=== PATIENT | male | born 1990 | race Caucasian/White ===

== ENCOUNTER 2023-02-01 22:14 | Inpatient (IN) | payer BC, OTHER, SELFPAY ==
[~2023-02-01 22:14] MED LIST: Iopamidol-370 76% 500 ML MDV (1 ML CHARGE) ONE
[2023-02-01 22:52] LABS: #Basophils 0.1 thou/uL (0.0-0.2); #Eosinphils 0.1 thou/uL (0.0-0.7); #Monocytes 1.6 thou/uL (0.11-0.59); #Neutrophils 12.2 thou/uL (1.40-6.50); %Basophils 0.6 % (0.0-1.0); %Eosinophils 0.6 % (0.0-10.0); %Lymphocytes 24.1 % (21.0-51.0); %Monocytes 8.3 % (0.0-10.0); %Neutrophils 65.2 % (42.0-75.0); Hematocrit 44.4 % (42.0-52.0); Hemoglobin 16.5 g/dL (14.0-18.0); Mean Corpuscular HGB CONC 37.2 g/dL (32.0-36.0); Mean Corpuscular Hemoglobin 32.8 pg (27.0-31.0); Mean Corpuscular Volume 88.3 fl (78.0-98.0); Mean Platelet Volume 11.2 fL (7.4-10.4); Platelet Count 344 10x3/uL (130-400); RBC Distribution Width 11.1 % (11.5-14.5); Red Blood Cell (RBC) Count 5.03 mill/uL (4.70-6.10); White Blood Cell (WBC) Count 18.8 10x3/uL (4.8-10.8)
[2023-02-01 22:58] LABS: INR-International Normal Ratio 1.1; PTT 24.3 sec (22.9-36.1); Prothrombin Time 14.7 sec (12.0-14.7)
[2023-02-01 23:03] LABS: ALT (SGPT) 1259 U/L (8-55); AST (SGOT) 1579 U/L (5-34); Alcohol 172.5 mg/dL (Less than 10); Alkaline Phosphatase 86 U/L (40-110); Anion Gap 21 mmol/L (10-20); BUN (Urea Nitrogen) 8 mg/dL (8.9-20.6); Bilirubin, Total 0.7 mg/dL (0.2-1.2); Calc. Creatinine Clearance 0 mL/min (70-130); Calcium 8.6 mg/dL (7.8-10.44); Carbon Dioxide 17 mmol/L (22-29); Chloride 103 mmol/L (98-107); Estimated GFR 86; Globulin 2.9 g/dL (2.4-3.5); Glucose 122 mg/dL (70-105); Lipase 135 U/L (8-78); Potassium 3.7 mmol/L (3.5-5.1); Protein, Total 6.9 g/dL (6.0-8.3); Sodium 137 mmol/L (136-145)
[2023-02-01] MEDS ORDERED: Ondansetron PF 4 MG/2 ML Vial ONE (23:25)
[2023-02-01] MEDS ORDERED: Tranexamic Acid 1,000 MG/10 ML VIAL ONE (23:25)
[2023-02-01] MEDS ORDERED: Boostrix 0.5 ML (Tdap) VIAL (>/=7 yrs of age) ONE (23:25)
[2023-02-01] MEDS ORDERED: Ondansetron PF 4 MG/2 ML Vial IVP PRN (23:45)
[2023-02-01] MEDS ORDERED: Acetaminophen 325 MG TAB PO PRN (23:45)
[2023-02-01] MEDS ORDERED: Ondansetron ODT 4 MG TAB SL PRN (23:45)
[2023-02-01] MEDS ORDERED: Ketorolac Tromethamine 30 MG/ML VIAL ONE (23:51)
[2023-02-02] MEDS ORDERED: Triple Antibiotic Oint 1 GM Packet ONE (00:27)
[2023-02-02] MEDS ORDERED: Dextrose 5% in Water 1,000 ML IV PRN (00:33)
[2023-02-02] MEDS ORDERED: Ondansetron ODT 4 MG TAB PO PRN (00:33)
[2023-02-02] MEDS ORDERED: Ondansetron PF 4 MG/2 ML Vial IVP PRN (00:33)
[2023-02-02] MEDS ORDERED: Dextrose 50% Abboject 50 ML SYRINGE SLOW IVP PRN (00:33)
[2023-02-02] MEDS ORDERED: Ipratropium/Albuterol 3 ML NEB NEB PRN (00:33)
[2023-02-02] MEDS ORDERED: Morphine 2 MG/ML VIAL SLOW IVP PRN (00:33)
[2023-02-02] MEDS ORDERED: Glucagon 1 MG/ML KIT IM PRN (00:33)
[2023-02-02] MEDS ORDERED: Sodium Chloride 0.9% 1,000 ML IV SCH ×2 (00:45→23:15)
[2023-02-02] MEDS ORDERED: Acetaminophen 500 MG TAB PO SCH (00:45)
[2023-02-02] MEDS ORDERED: traMADol HCl 50 MG TAB ONE (01:02)
[2023-02-02] MEDS: Ketorolac Tromethamine 30 MG/ML VIAL IVP SCH ×4 (02:16→18:44)
[2023-02-02] MEDS: traMADol HCl 50 MG TAB PO SCH ×4 (02:16→18:45)
[2023-02-02] MEDS: Morphine 4 MG/ML VIAL SLOW IVP PRN ×2 (02:23→20:38)
[2023-02-02] MEDS: Oxazepam 10 MG CAP PO SCH ×3 (06:18→20:34)
[2023-02-02 06:36] LABS: #Monocytes 2.4 thou/uL (0.11-0.59); #Neutrophils 15.2 thou/uL (1.40-6.50); %Basophils 0.1 % (0.0-1.0); %Lymphocytes 6.4 % (21.0-51.0); %Monocytes 12.7 % (0.0-10.0); %Neutrophils 80.4 % (42.0-75.0); Hematocrit 43.5 % (42.0-52.0); Hemoglobin 15.7 g/dL (14.0-18.0); Mean Corpuscular HGB CONC 36.1 g/dL (32.0-36.0); Mean Corpuscular Hemoglobin 32.2 pg (27.0-31.0); Mean Corpuscular Volume 89.3 fl (78.0-98.0); Mean Platelet Volume 11.3 fL (7.4-10.4); Platelet Count 341 10x3/uL (130-400); RBC Distribution Width 11.5 % (11.5-14.5); Red Blood Cell (RBC) Count 4.87 mill/uL (4.70-6.10)
[2023-02-02 06:56] LABS: Anion Gap 15 mmol/L (10-20); BUN (Urea Nitrogen) 9 mg/dL (8.9-20.6); Calc. Creatinine Clearance 172 mL/min (70-130); Calcium 8.9 mg/dL (7.8-10.44); Carbon Dioxide 20 mmol/L (22-29); Chloride 107 mmol/L (98-107); Estimated GFR 109; Glucose 175 mg/dL (70-105); Potassium 4.9 mmol/L (3.5-5.1); Sodium 137 mmol/L (136-145)
[2023-02-02] MEDS: Ipratropium/Albuterol 3 ML NEB NEB SCH ×3 (07:43→18:32)
[2023-02-02] MEDS: Gabapentin 300 MG CAP PO SCH ×3 (09:03→20:34)
[2023-02-02] MEDS: Thiamine 100 MG TAB PO SCH (09:03)
[2023-02-02] MEDS: Famotidine 20 MG TAB PO SCH ×2 (09:03→20:34)
[2023-02-02] MEDS: Multivitamin W/ Minerals 1 TAB PO SCH (09:03)
[2023-02-02] MEDS: Folic Acid 1 MG TAB PO SCH (09:03)
[2023-02-02] MEDS: Escitalopram Oxalate 20 mg Tablet PO SCH (09:03)
[2023-02-02] MEDS: Cyclobenzaprine 10 MG TAB PO PRN ×2 (09:10→17:25)
[2023-02-02] MEDS: Silver Sulfadiazine 1% Cream 20 GM TUBE TOP SCH (14:54)
[2023-02-02] MEDS: Atorvastatin Calcium 10 MG TAB PO SCH (20:34)
[2023-02-02] MEDS ORDERED: Pravastatin Sodium 40 MG TAB PO SCH (21:00)
[2023-02-02] MEDS ORDERED: Lidocaine 1% (PF) 30 ML VIAL ONE (23:42)
[2023-02-02] MEDS ORDERED: CEFAZOLIN 2 GM in Sodium Chloride 0.9% 100 ML IVPB SCH (23:45)
[2023-02-03 00:04] LABS: #Basophils 0.1 thou/uL (0.0-0.2); #Monocytes 2.3 thou/uL (0.11-0.59); #Neutrophils 9.8 thou/uL (1.40-6.50); %Basophils 0.4 % (0.0-1.0); %Eosinophils 0.1 % (0.0-10.0); %Lymphocytes 13.9 % (21.0-51.0); %Monocytes 16.2 % (0.0-10.0); %Neutrophils 68.6 % (42.0-75.0); Mean Corpuscular Hemoglobin 32.4 pg (27.0-31.0); Mean Platelet Volume 10.9 fL (7.4-10.4); Platelet Count 246 10x3/uL (130-400); RBC Distribution Width 11.7 % (11.5-14.5); White Blood Cell (WBC) Count 14.3 10x3/uL (4.8-10.8)
[2023-02-03 00:05] LABS: Hematocrit 33.3 % (42.0-52.0)
[2023-02-03 00:37] LABS: ALT (SGPT) 536 U/L (8-55); AST (SGOT) 300 U/L (5-34); Albumin 3.1 g/dL (3.5-5.0); Alkaline Phosphatase 55 U/L (40-110); Anion Gap 12 mmol/L (10-20); BUN (Urea Nitrogen) 17 mg/dL (8.9-20.6); Bilirubin, Total 1.3 mg/dL (0.2-1.2); Calc. Creatinine Clearance 71 mL/min (70-130); Calcium 8.4 mg/dL (7.8-10.44); Carbon Dioxide 21 mmol/L (22-29); Chloride 107 mmol/L (98-107); Estimated GFR 38; Globulin 2.4 g/dL (2.4-3.5); Glucose 166 mg/dL (70-105); Potassium 4.1 mmol/L (3.5-5.1); Protein, Total 5.5 g/dL (6.0-8.3); Sodium 136 mmol/L (136-145)
[2023-02-03] MEDS ORDERED: Sodium Chloride 0.9% 1,000 ML IV SCH (01:00)
[2023-02-03] MEDS: traMADol HCl 50 MG TAB PO SCH ×3 (01:08→21:01)
[2023-02-03] MEDS: Ketorolac Tromethamine 30 MG/ML VIAL IVP SCH (01:08)
[2023-02-03] MEDS: Sodium Chloride 0.9% 1,000 ML IV SCH ×2 (01:10→09:01)
[2023-02-03] MEDS: Oxazepam 10 MG CAP PO SCH ×3 (05:06→21:01)
[2023-02-03 05:43] LABS: #Basophils 0.1 thou/uL (0.0-0.2); #Monocytes 2.3 thou/uL (0.11-0.59); #Neutrophils 13.1 thou/uL (1.40-6.50); %Basophils 0.4 % (0.0-1.0); %Eosinophils 0.1 % (0.0-10.0); %Lymphocytes 11.7 % (21.0-51.0); %Monocytes 13.1 % (0.0-10.0); %Neutrophils 73.9 % (42.0-75.0); Hematocrit 33.2 % (42.0-52.0); Hemoglobin 11.7 g/dL (14.0-18.0); Mean Corpuscular HGB CONC 35.2 g/dL (32.0-36.0); Mean Corpuscular Hemoglobin 32.1 pg (27.0-31.0); Mean Corpuscular Volume 91.2 fl (78.0-98.0); Mean Platelet Volume 11.2 fL (7.4-10.4); Platelet Count 262 10x3/uL (130-400); RBC Distribution Width 11.7 % (11.5-14.5); Red Blood Cell (RBC) Count 3.64 mill/uL (4.70-6.10); White Blood Cell (WBC) Count 17.7 10x3/uL (4.8-10.8)
[2023-02-03 06:00] LABS: ALT (SGPT) 491 U/L (8-55); AST (SGOT) 276 U/L (5-34); Albumin 3.5 g/dL (3.5-5.0); Alkaline Phosphatase 59 U/L (40-110); Anion Gap 13 mmol/L (10-20); BUN (Urea Nitrogen) 19 mg/dL (8.9-20.6); Bilirubin, Total 1.2 mg/dL (0.2-1.2); Calc. Creatinine Clearance 83 mL/min (70-130); Calcium 8.6 mg/dL (7.8-10.44); Carbon Dioxide 21 mmol/L (22-29); Chloride 102 mmol/L (98-107); Estimated GFR 44; Globulin 2.6 g/dL (2.4-3.5); Glucose 148 mg/dL (70-105); Potassium 4.9 mmol/L (3.5-5.1); Protein, Total 6.1 g/dL (6.0-8.3); Sodium 131 mmol/L (136-145)
[2023-02-03] MEDS: Ipratropium/Albuterol 3 ML NEB NEB SCH ×3 (07:16→18:22)
[2023-02-03] MEDS: Thiamine 100 MG TAB PO SCH (08:37)
[2023-02-03] MEDS: Multivitamin W/ Minerals 1 TAB PO SCH (08:37)
[2023-02-03] MEDS: Folic Acid 1 MG TAB PO SCH (08:37)
[2023-02-03] MEDS: Famotidine 20 MG TAB PO SCH ×2 (08:37→21:00)
[2023-02-03] MEDS: Gabapentin 300 MG CAP PO SCH ×3 (08:38→20:59)
[2023-02-03] MEDS: Escitalopram Oxalate 20 mg Tablet PO SCH (08:38)
[2023-02-03] MEDS: Silver Sulfadiazine 1% Cream 20 GM TUBE TOP SCH (08:39)
[2023-02-03] MEDS ORDERED: Lactated Ringer's 1,000 ML IV SCH (09:00)
[2023-02-03] MEDS: Morphine 4 MG/ML VIAL SLOW IVP PRN (11:51)
[2023-02-03] MEDS: Atorvastatin Calcium 10 MG TAB PO SCH (21:02)
[2023-02-04] MEDS: Oxazepam 10 MG CAP PO SCH ×3 (05:08→20:27)
[2023-02-04] MEDS: Morphine 4 MG/ML VIAL SLOW IVP PRN ×2 (05:09→10:08)
[2023-02-04 05:23] LABS: Anion Gap 15 mmol/L (10-20); BUN (Urea Nitrogen) 11 mg/dL (8.9-20.6); Calc. Creatinine Clearance 193 mL/min (70-130); Calcium 8.9 mg/dL (7.8-10.44); Carbon Dioxide 19 mmol/L (22-29); Chloride 102 mmol/L (98-107); Estimated GFR 117; Glucose 120 mg/dL (70-105); Potassium 5.5 mmol/L (3.5-5.1); Sodium 130 mmol/L (136-145)
[2023-02-04] MEDS: Ipratropium/Albuterol 3 ML NEB NEB SCH ×3 (07:03→19:36)
[2023-02-04 07:14] LABS: #Eosinphils 0.1 thou/uL (0.0-0.7); #Monocytes 1.1 thou/uL (0.11-0.59); #Neutrophils 7.8 thou/uL (1.40-6.50); %Basophils 0.4 % (0.0-1.0); %Lymphocytes 12.5 % (21.0-51.0); %Monocytes 10.4 % (0.0-10.0); %Neutrophils 74.6 % (42.0-75.0); Hematocrit 24.6 % (42.0-52.0); Hemoglobin 8.8 g/dL (14.0-18.0); Mean Corpuscular HGB CONC 35.8 g/dL (32.0-36.0); Mean Corpuscular Hemoglobin 32.8 pg (27.0-31.0); Mean Corpuscular Volume 91.8 fl (78.0-98.0); Mean Platelet Volume 11.3 fL (7.4-10.4); Platelet Count 164 10x3/uL (130-400); RBC Distribution Width 11.7 % (11.5-14.5); Red Blood Cell (RBC) Count 2.68 mill/uL (4.70-6.10); White Blood Cell (WBC) Count 10.5 10x3/uL (4.8-10.8)
[2023-02-04] MEDS ORDERED: Calcium Chloride 13.6 MEQ in Sodium Chloride 0.9% 100 ML IVPB SCH (08:30)
[2023-02-04] MEDS: Gabapentin 300 MG CAP PO SCH ×3 (09:29→20:26)
[2023-02-04] MEDS: Polyethylene Glycol 3350 17 GM Packet PO SCH (09:29)
[2023-02-04] MEDS: Famotidine 20 MG TAB PO SCH ×2 (09:30→20:26)
[2023-02-04] MEDS: Senokot 8.6 MG TAB PO SCH ×2 (09:30→20:26)
[2023-02-04] MEDS: Escitalopram Oxalate 20 mg Tablet PO SCH (09:30)
[2023-02-04] MEDS: Folic Acid 1 MG TAB PO SCH (09:30)
[2023-02-04] MEDS: Multivitamin W/ Minerals 1 TAB PO SCH (09:30)
[2023-02-04] MEDS: Thiamine 100 MG TAB PO SCH (09:30)
[2023-02-04] MEDS: Silver Sulfadiazine 1% Cream 20 GM TUBE TOP SCH (09:31)
[2023-02-04] MEDS ORDERED: Ketorolac Tromethamine 30 MG/ML VIAL IVP PRN (11:12)
[2023-02-04] MEDS ORDERED: Ketorolac Tromethamine 30 MG/ML VIAL IVP SCH (11:15)
[2023-02-04] MEDS: traMADol HCl 50 MG TAB PO SCH ×3 (12:07→23:31)
[2023-02-04] MEDS: Acetaminophen 500 MG TAB PO SCH ×3 (12:07→23:30)
[2023-02-04] MEDS: Ketorolac Tromethamine 30 MG/ML VIAL IVP SCH (17:02)
[2023-02-04] MEDS: Atorvastatin Calcium 10 MG TAB PO SCH (20:26)
[2023-02-05] MEDS: Ketorolac Tromethamine 30 MG/ML VIAL IVP SCH ×2 (00:35→06:07)
[2023-02-05] MEDS: Morphine 4 MG/ML VIAL SLOW IVP PRN ×2 (03:52→20:10)
[2023-02-05] MEDS: traMADol HCl 50 MG TAB PO SCH ×4 (05:02→23:48)
[2023-02-05] MEDS: Acetaminophen 500 MG TAB PO SCH (05:02)
[2023-02-05 05:58] LABS: #Basophils 0.1 thou/uL (0.0-0.2); #Eosinphils 0.3 thou/uL (0.0-0.7); #Monocytes 1.4 thou/uL (0.11-0.59); #Neutrophils 8.2 thou/uL (1.40-6.50); %Basophils 0.6 % (0.0-1.0); %Eosinophils 2.4 % (0.0-10.0); %Lymphocytes 12.4 % (21.0-51.0); %Monocytes 11.6 % (0.0-10.0); %Neutrophils 68.4 % (42.0-75.0); Hematocrit 27.3 % (42.0-52.0); Hemoglobin 9.7 g/dL (14.0-18.0); Mean Corpuscular HGB CONC 35.5 g/dL (32.0-36.0); Mean Corpuscular Hemoglobin 32.8 pg (27.0-31.0); Mean Corpuscular Volume 92.2 fl (78.0-98.0); Mean Platelet Volume 11.5 fL (7.4-10.4); Platelet Count 188 10x3/uL (130-400); RBC Distribution Width 11.7 % (11.5-14.5); Red Blood Cell (RBC) Count 2.96 mill/uL (4.70-6.10); White Blood Cell (WBC) Count 11.9 10x3/uL (4.8-10.8)
[2023-02-05] MEDS: Oxazepam 10 MG CAP PO SCH ×2 (06:07→20:06)
[2023-02-05] MEDS: Ipratropium/Albuterol 3 ML NEB NEB SCH ×3 (06:23→21:45)
[2023-02-05 06:28] LABS: ALT (SGPT) 146 U/L (8-55); AST (SGOT) 79 U/L (5-34); Albumin 3.1 g/dL (3.5-5.0); Alkaline Phosphatase 65 U/L (40-110); Anion Gap 9 mmol/L (10-20); BUN (Urea Nitrogen) 15 mg/dL (8.9-20.6); Bilirubin, Total 0.9 mg/dL (0.2-1.2); Calc. Creatinine Clearance 197 mL/min (70-130); Carbon Dioxide 27 mmol/L (22-29); Chloride 100 mmol/L (98-107); Estimated GFR 116; Globulin 2.8 g/dL (2.4-3.5); Glucose 95 mg/dL (70-105); Potassium 3.9 mmol/L (3.5-5.1); Protein, Total 5.9 g/dL (6.0-8.3); Sodium 132 mmol/L (136-145)
[2023-02-05] MEDS: Thiamine 100 MG TAB PO SCH (09:34)
[2023-02-05] MEDS: Polyethylene Glycol 3350 17 GM Packet PO SCH (09:34)
[2023-02-05] MEDS: Folic Acid 1 MG TAB PO SCH (09:34)
[2023-02-05] MEDS: Escitalopram Oxalate 20 mg Tablet PO SCH (09:35)
[2023-02-05] MEDS: Multivitamin W/ Minerals 1 TAB PO SCH (09:35)
[2023-02-05] MEDS: Senokot 8.6 MG TAB PO SCH ×2 (09:35→20:06)
[2023-02-05] MEDS: Gabapentin 300 MG CAP PO SCH ×3 (09:35→20:06)
[2023-02-05] MEDS: Famotidine 20 MG TAB PO SCH ×2 (09:35→20:06)
[2023-02-05] MEDS: Silver Sulfadiazine 1% Cream 20 GM TUBE TOP SCH (09:37)
[2023-02-05] MEDS: Ibuprofen 200 MG TAB PO SCH ×3 (12:27→23:47)
[2023-02-05] MEDS: Acetaminophen 325 MG TAB PO SCH ×3 (12:29→23:47)
[2023-02-05] MEDS ORDERED: Cyclobenzaprine 10 MG TAB PO SCH (15:00)
[2023-02-05] MEDS: Atorvastatin Calcium 10 MG TAB PO SCH (20:06)
[2023-02-06] MEDS: Cyclobenzaprine 10 MG TAB PO PRN ×2 (03:15→20:41)
[2023-02-06] MEDS: Morphine 4 MG/ML VIAL SLOW IVP PRN (03:17)
[2023-02-06] MEDS: Ibuprofen 200 MG TAB PO SCH ×3 (05:00→18:08)
[2023-02-06] MEDS: traMADol HCl 50 MG TAB PO SCH ×3 (05:01→18:08)
[2023-02-06] MEDS: Acetaminophen 325 MG TAB PO SCH ×3 (05:01→18:07)
[2023-02-06] MEDS: Ipratropium/Albuterol 3 ML NEB NEB SCH ×3 (06:32→19:31)
[2023-02-06] MEDS: Famotidine 20 MG TAB PO SCH ×2 (08:19→20:40)
[2023-02-06] MEDS: Oxazepam 10 MG CAP PO SCH ×2 (08:19→20:40)
[2023-02-06] MEDS: Folic Acid 1 MG TAB PO SCH (08:19)
[2023-02-06] MEDS: Gabapentin 300 MG CAP PO SCH ×3 (08:19→20:40)
[2023-02-06] MEDS: Thiamine 100 MG TAB PO SCH (08:19)
[2023-02-06] MEDS: Multivitamin W/ Minerals 1 TAB PO SCH (08:19)
[2023-02-06] MEDS: Senokot 8.6 MG TAB PO SCH ×2 (08:21→20:42)
[2023-02-06] MEDS: Escitalopram Oxalate 20 mg Tablet PO SCH (08:21)
[2023-02-06] MEDS: Polyethylene Glycol 3350 17 GM Packet PO SCH (08:22)
[2023-02-06] MEDS: Silver Sulfadiazine 50 GM TUBE TOP SCH (13:00)
[2023-02-06] MEDS: Atorvastatin Calcium 10 MG TAB PO SCH (20:41)
[2023-02-07] MEDS: Ibuprofen 200 MG TAB PO SCH ×5 (00:01→23:43)
[2023-02-07] MEDS: traMADol HCl 50 MG TAB PO SCH ×5 (00:02→23:43)
[2023-02-07] MEDS: Acetaminophen 325 MG TAB PO SCH ×5 (00:02→23:42)
[2023-02-07] MEDS: Morphine 4 MG/ML VIAL SLOW IVP PRN (00:05)
[2023-02-07] MEDS: Ipratropium/Albuterol 3 ML NEB NEB SCH (07:12)
[2023-02-07] MEDS: Oxazepam 10 MG CAP PO SCH ×2 (08:35→20:40)
[2023-02-07] MEDS: Gabapentin 300 MG CAP PO SCH ×3 (08:35→20:40)
[2023-02-07] MEDS: Folic Acid 1 MG TAB PO SCH (08:35)
[2023-02-07] MEDS: Escitalopram Oxalate 20 mg Tablet PO SCH (08:35)
[2023-02-07] MEDS: Polyethylene Glycol 3350 17 GM Packet PO SCH (08:36)
[2023-02-07] MEDS: Famotidine 20 MG TAB PO SCH ×2 (08:36→20:41)
[2023-02-07] MEDS: Thiamine 100 MG TAB PO SCH (08:36)
[2023-02-07] MEDS: Senokot 8.6 MG TAB PO SCH ×2 (08:36→20:41)
[2023-02-07] MEDS: Multivitamin W/ Minerals 1 TAB PO SCH (08:36)
[2023-02-07] MEDS: Silver Sulfadiazine 50 GM TUBE TOP SCH (08:37)
[2023-02-07] MEDS ORDERED: Ipratropium/Albuterol 3 ML NEB NEB PRN (11:37)
[2023-02-07 15:20] VITALS: BMI 38.4
[2023-02-07] MEDS: Cyclobenzaprine 10 MG TAB PO PRN (18:28)
[2023-02-07] MEDS: Atorvastatin Calcium 10 MG TAB PO SCH (20:40)
[2023-02-08] MEDS: Acetaminophen 325 MG TAB PO SCH ×3 (06:15→17:55)
[2023-02-08] MEDS: traMADol HCl 50 MG TAB PO SCH ×3 (06:15→17:55)
[2023-02-08] MEDS: Ibuprofen 200 MG TAB PO SCH ×3 (06:22→17:54)
[2023-02-08] MEDS: Multivitamin W/ Minerals 1 TAB PO SCH (07:56)
[2023-02-08] MEDS: Escitalopram Oxalate 20 mg Tablet PO SCH (07:56)
[2023-02-08] MEDS: Famotidine 20 MG TAB PO SCH (07:57)
[2023-02-08] MEDS: Thiamine 100 MG TAB PO SCH (07:57)
[2023-02-08] MEDS: Gabapentin 300 MG CAP PO SCH ×2 (07:57→15:43)
[2023-02-08] MEDS: Folic Acid 1 MG TAB PO SCH (07:57)
[2023-02-08] MEDS: Cyclobenzaprine 10 MG TAB PO PRN (07:58)
[2023-02-08] MEDS: Silver Sulfadiazine 50 GM TUBE TOP SCH (08:00)
[2023-02-08] MEDS: Oxazepam 10 MG CAP PO SCH (08:00)
[2023-02-08] MEDS: Polyethylene Glycol 3350 17 GM Packet PO SCH (08:00)
[2023-02-08] MEDS: Senokot 8.6 MG TAB PO SCH (08:00)
[2023-02-08 15:37] VITALS: BP 142/93; TEMP 99
== END 2023-02-08 17:55 | disposition home or self-care (01) | DRG 963 ==
LOC: ERS 22:14 → SURG A 23:38 → IMCU/EMU 02-03 02:43 → SURG A 02-04 18:40
PROVIDERS: ADMIT Surgery; ATTEND Surgery
PROC: 0HQ0XZZ Repair Scalp Skin, External Approach (ICD-10-PCS; principal; 2023-02-03)
PROC: 0W9930Z Drainage of Right Pleural Cavity with Drainage Device, Percutaneous Approach (ICD-10-PCS; 2023-02-03)
DX: S27.2XXA Traumatic hemopneumothorax, initial encounter (principal); N17.0 Acute kidney failure with tubular necrosis; S36.119A Unspecified injury of liver, initial encounter; S22.41XA Multiple fractures of ribs, right side, initial encounter for closed fracture; S22.068A Other fracture of T7-T8 thoracic vertebra, initial encounter for closed fracture; S22.078A Other fracture of T9-T10 vertebra, initial encounter for closed fracture; S27.321A Contusion of lung, unilateral, initial encounter; F10.129 Alcohol abuse with intoxication, unspecified; S01.01XA Laceration without foreign body of scalp, initial encounter; F17.210 Nicotine dependence, cigarettes, uncomplicated; S42.001A Fracture of unspecified part of right clavicle, initial encounter for closed fracture; S42.111A Displaced fracture of body of scapula, right shoulder, initial encounter for closed fracture; K76.0 Fatty (change of) liver, not elsewhere classified; D72.829 Elevated white blood cell count, unspecified; E86.0 Dehydration; R06.89 Other abnormalities of breathing; V86.55XA Driver of 3- or 4- wheeled all-terrain vehicle (ATV) injured in nontraffic accident, initial encounter; Y92.89 Other specified places as the place of occurrence of the external cause
CPT/HCPCS: 12002; 36415; 70450; 71045; 71260; 72125; 72170; 74177; 80048; 80053; 80307; 83690; 85025; 85610; 85730; 90471; 90715; 93005; 93010; 93970; 94640; 96374; 96375; 97139; G0390; J1885; J2001; J2270; J2272; J2405; J3490; J7050; J7120; J7620; Q9967